=== PATIENT | male | born 1955 | race Caucasian/White ===

== ENCOUNTER 2018-09-26 13:53 | Emergency (ER) | payer BC ==
[2018-09-26] MEDS ORDERED: Sodium Chloride 0.9% 1,000 ML IV SCH (15:15)
[2018-09-26] MEDS ORDERED: Aspirin 81 MG Tab.Chew PO ONE (15:30)
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
--- NOTE | 2018-09-26 17:25 | CT ---
DATE OF SERVICE: 09/26/18 CLINICAL DATA: possible stroke UNENHANCED BRAIN CT: Multislice acquisition through the brain without IV contrast was performed. 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 No masses or mass effect. No intracranial hemorrhage. No evidence of acute or subacute infarct. IMPRESSION: No acute intracranial abnormalities. [id number] [facility]
--- NOTE | 2018-09-26 17:45 | CR ---
DATE OF SERVICE: 09/26/18 CLINICAL DATA: Possible Stroke AP PORTABLE CHEST: No priors. The heart size is normal. There is calcification of the aortic arch. The lungs are clear. No pneumothorax. No pleural effusions. No evidence of acute intrathoracic disease. [id number] [facility]
== END 2018-09-26 15:43 ==
LOC: LB.ED 13:53
DX: I63.9 Cerebral infarction, unspecified (principal)
CPT/HCPCS: 36415; 70450; 71045; 80053; 84443; 84484; 85025; 85610; 85730; 93005; 99285; A0425; A0429; A9270